=== PATIENT | male | born 1955 | race Hispanic/Latino ===

== ENCOUNTER 2017-05-11 12:56 | Inpatient (IN) | payer MEDICARE ==
[~2017-05-11] VITALS: Ht 180.3 cm; Wt 113.4 kg
[~2017-05-11 12:56] MED LIST: ASPI-1197 PO; CINA30 PO; CLOP75TA14 PO; MIDO10TA PO; PRAV40TA3 PO; SEVE800T7 PO
[2017-05-11] MEDS ORDERED: SODIUM BICARB 50MEQ 50ML VIAL ONE (13:10)
[2017-05-11] MEDS ORDERED: DEXTROSE 50%-WATER 50 ML DISP.SYRIN IV ONE (13:10)
[2017-05-11] MEDS ORDERED: CALCIUM GLUCONATE 1 GM/10 ML VIAL IV ONE (13:10)
[2017-05-11] MEDS ORDERED: INSULIN HUMULIN R 100 UNIT/ML 3ML ONE (13:13)
[2017-05-11] MEDS ORDERED: FUROSEMIDE 10 MG/ML 4ML VIAL ONE ×2 (13:13→13:31)
[2017-05-11] MEDS ORDERED: SODIUM POLYSTYRENE SULFONATE 15 GM/60 ML ML ONE ×2 (13:18→16:29)
[2017-05-11] MEDS ORDERED: ONDANSETRON ODT 4 MG TAB ONE (13:19)
[2017-05-11 13:31] LABS: ABG HCO3 20.1 mmol/L (21.0-28.0); ABG OXYGEN SATURATION 95.7 % (95.0-99.0); ABG PCO2 33 mmHg (35-48)
[2017-05-11 13:37] LABS: BASOPHILS % (AUTO) 0.9 % (0.0-5.0); EOSINOPHILS % (AUTO) 1.7 % (0.0-8.0); HEMATOCRIT 39.1 % (42-54); LYMPHOCYTES % (AUTO) 19.9 % (21.0-51.0); MEAN CORPUSCULAR HEMOGLOBIN 33.3 pg (27.0-33.0); MEAN CORPUSCULAR HGB CONC 34.1 g/dL (32.0-36.0); MEAN CORPUSCULAR VOLUME 97.6 fL (79-99); MONOCYTES % (AUTO) 8.1 % (3.0-13.0); NEUTROPHILS % (AUTO) 69.4 % (40.0-77.0); PLATELET COUNT (AUTO) 195 K/uL (130-400); RED CELL DISTRIBUTION WIDTH 14.4 % (11.0-15.5); WHITE BLOOD COUNT (AUTO) 9.3 K/uL (4.8-10.8)
[2017-05-11 13:54] LABS: INR 1.03 (0.85-1.15); PARTIAL THROMBOPLASTIN TIME 26.8 SEC (26.3-35.5); PROTHROMBIN TIME 10.8 SEC (9.6-11.6)
[2017-05-11 14:02] LABS: BILIRUBIN,TOTAL 0.5 mg/dL (0.2-1.0); TOTAL PROTEIN, SERUM 8.4 g/dL (6.0-8.3)
[2017-05-11 14:06] LABS: CREATININE 10.8 mg/dL (0.5-1.5)
[2017-05-11 17:49] VITALS: BP 140/66
[2017-05-11 19:00] VITALS: BP 130/60
[2017-05-11] MEDS: INSULIN R PO SS1 SQ SCH (21:00)
[2017-05-11 21:37] LABS: CREATINE KINASE MB 0.8 ng/mL (0.5-3.6); CREATINE KINASE, TOTAL 54 U/L (21-232); MYOGLOBIN 356 ng/mL (10-92); TROPONIN I < 0.04 ng/mL (0.00-0.06)
[2017-05-12] VITALS (7 sets, daily range): BP systolic 109–147; BP diastolic 60–70
[2017-05-12 05:37] LABS: HEMATOCRIT 30.8 % (42-54); MEAN CORPUSCULAR HEMOGLOBIN 34.1 pg (27.0-33.0); MEAN CORPUSCULAR HGB CONC 35.2 g/dL (32.0-36.0); MEAN CORPUSCULAR VOLUME 97.1 fL (79-99); NUCLEATED RED BLOOD CELLS 0.1 % (0.0-0.19); PLATELET COUNT (AUTO) 164 K/uL (130-400); RED BLOOD CELL COUNT(AUTO) 3.18 MIL/uL (4.50-6.20); RED CELL DISTRIBUTION WIDTH 13.9 % (11.0-15.5); WHITE BLOOD COUNT (AUTO) 6.6 K/uL (4.8-10.8)
[2017-05-12 06:01] LABS: CARBON DIOXIDE 27 mmol/L (21-32); CHLORIDE 103 mmol/L (101-111); CREATINE KINASE MB 0.6 ng/mL (0.5-3.6); CREATINE KINASE, TOTAL 44 U/L (21-232); GLOMERULAR FILTR. RATE CALC 4 mL/min (>60); GLUCOSE,RANDOM 73 mg/dL (70-105); MYOGLOBIN 355 ng/mL (10-92); POTASSIUM 4.5 mmol/L (3.5-5.1); SODIUM SERUM 146 mmol/L (136-145); TROPONIN I < 0.04 ng/mL (0.00-0.06); UREA NITROGEN, BLOOD 66 mg/dL (7-18)
[2017-05-12 06:04] LABS: CREATININE 12.9 mg/dL (0.5-1.5)
[2017-05-12] MEDS: INSULIN R PO SS1 SQ SCH ×4 (06:06→20:39)
[2017-05-12] MEDS ORDERED: 0.9% SODIUM CHLORIDE 250 ML IV BAG IV PRN (12:00)
[2017-05-12] MEDS ORDERED: SODIUM CHLORIDE 0.9% 1000ML 1,000 ML IV PRN (12:00)
[2017-05-12] MEDS ORDERED: HEPARIN SODIUM 5000UNIT/ML 1ML VIAL IJ PRN ×2 (12:00)
[2017-05-12] MEDS ORDERED: ALBUMIN (HUMAN) 25% 100 ML IV PRN (12:00)
[2017-05-12] MEDS ORDERED: SEVE800T7 PO (17:56)
[2017-05-12] MEDS ORDERED: SUCR500T PO (17:56)
[2017-05-12] MEDS ORDERED: MIDO10TA PO (17:56)
[2017-05-12] MEDS: MIDODRINE HCL 5 MG TABLET PO SCH (20:39)
[2017-05-13 03:10] VITALS: BP 123/54
[2017-05-13 03:55] LABS: HEMATOCRIT 31.4 % (42-54); MEAN CORPUSCULAR HEMOGLOBIN 33.1 pg (27.0-33.0); MEAN CORPUSCULAR HGB CONC 34.4 g/dL (32.0-36.0); MEAN CORPUSCULAR VOLUME 96.1 fL (79-99); PLATELET COUNT (AUTO) 136 K/uL (130-400); RED BLOOD CELL COUNT(AUTO) 3.27 MIL/uL (4.50-6.20); RED CELL DISTRIBUTION WIDTH 13.8 % (11.0-15.5); WHITE BLOOD COUNT (AUTO) 5.9 K/uL (4.8-10.8)
[2017-05-13 04:03] LABS: PHOSPHORUS 8.9 mg/dL (2.5-4.9); POTASSIUM 4.3 mmol/L (3.5-5.1)
[2017-05-13 04:12] LABS: CREATININE 9.6 mg/dL (0.5-1.5)
[2017-05-13 04:22] LABS: BAND NEUTROPHILS % (MANUAL) 4 % (0-2); BASOPHILS % (MANUAL) 1 % (0-2); EOSINOPHILS % (MANUAL) 4 % (1-6); LYMPHOCYTES % (MANUAL) 34 % (22-44); MAN.DIFF COMMENT-IMPRESSION MANUAL DIFFERENTIAL; MONOCYTES % (MANUAL) 5 % (2-9); REACTIVE LYMPHOCYTES 2 % (0-0); SEGMENTED NEUTROPHILS % 50 % (40-70)
[2017-05-13] MEDS: INSULIN R PO SS1 SQ SCH (06:13)
[2017-05-13] MEDS ORDERED: SEVELAMER HCL 800 MG TABLET PO SCH (07:30)
[2017-05-13 08:00] VITALS: BP 127/63
[2017-05-13] MEDS: MIDODRINE HCL 5 MG TABLET PO SCH (08:21)
== END 2017-05-13 12:18 | disposition home or self-care (01) | DRG 308 ==
LOC: EDH 12:56 → EDHIP 16:25 → 3BH 17:12
PROVIDERS: ADMIT Internal Medicine Nephrology; ATTEND Internal Medicine Nephrology
PROC: 5A1D70Z Performance of Urinary Filtration, Intermittent, Less than 6 Hours Per Day (ICD-10-PCS; principal; 2017-05-12)
DX: I49.8 Other specified cardiac arrhythmias (principal); N18.6 End stage renal disease; E11.22 Type 2 diabetes mellitus with diabetic chronic kidney disease; I12.0 Hypertensive chronic kidney disease with stage 5 chronic kidney disease or end stage renal disease; I44.2 Atrioventricular block, complete; E87.5 Hyperkalemia; I45.2 Bifascicular block; Z99.2 Dependence on renal dialysis; E87.6 Hypokalemia; I25.10 Atherosclerotic heart disease of native coronary artery without angina pectoris; R62.7 Adult failure to thrive; Z95.5 Presence of coronary angioplasty implant and graft; Z91.19 Patient's noncompliance with other medical treatment and regimen; Z91.041 Radiographic dye allergy status; Z88.8 Allergy status to other drugs, medicaments and biological substances; Z83.3 Family history of diabetes mellitus; Z82.49 Family history of ischemic heart disease and other diseases of the circulatory system
CPT/HCPCS: 36415; 36600; 71045; 80048; 80053; 82330; 82435; 82550; 82553; 82803; 82947; 82948; 83605; 83874; 84100; 84132; 84295; 84484; 85018; 85025; 85027; 85610; 85730; 90935; 93005; 93306; 99291; J0610; J1644; J1815; J1940; J3490; J7070

== ENCOUNTER → 2017-06-20 | Outpatient (CLI) | payer MEDICARE ==
[~2017-06-20] MED LIST changes: +AEC81 PO; -ASPI-1197 PO; -CINA30 PO; -CLOP75TA14 PO; +FOLI1TAB85 PO; +INSLAN SQ; +MECL12.585 PO; +SUCR500T PO
== END | disposition home or self-care (01) ==
LOC: SHCH 07:41
PROVIDERS: ATTEND Internal Medicine Cardiovascular Disease
DX: I25.10 Atherosclerotic heart disease of native coronary artery without angina pectoris (principal); R00.1 Bradycardia, unspecified
CPT/HCPCS: 78481; A9512

== ENCOUNTER → 2017-06-29 | Outpatient (CLI) | payer MEDICARE | END | disposition home or self-care (01) | LOC: RAH 13:05 | PROVIDERS: ATTEND Physician Assistant Medical | DX: H34.11 Central retinal artery occlusion, right eye (principal) | CPT/HCPCS: 93880 ==

== ENCOUNTER 2017-07-03 11:17 | Inpatient (IN) | payer MEDICARE ==
[~2017-07-03] VITALS: Ht 180.3 cm; Wt 112.2 kg
[~2017-07-03 11:17] MED LIST changes: -AEC81 PO; -FOLI1TAB85 PO; -INSLAN SQ; -MECL12.585 PO; -PRAV40TA3 PO
[2017-07-03 12:56] LABS: BASOPHILS % (AUTO) 0.3 % (0.0-5.0); HEMATOCRIT 31.7 % (42-54); MEAN CORPUSCULAR HEMOGLOBIN 31.4 pg (27.0-33.0); MEAN CORPUSCULAR HGB CONC 32.8 g/dL (32.0-36.0); MEAN CORPUSCULAR VOLUME 95.8 fL (79-99); MONOCYTES % (AUTO) 7.5 % (3.0-13.0); NEUTROPHILS % (AUTO) 88.2 % (40.0-77.0); PLATELET COUNT (AUTO) 145 K/uL (130-400); RED BLOOD CELL COUNT(AUTO) 3.31 MIL/uL (4.50-6.20); RED CELL DISTRIBUTION WIDTH 13.6 % (11.0-15.5); WHITE BLOOD COUNT (AUTO) 13.3 K/uL (4.8-10.8)
[2017-07-03 13:20] LABS: INR 1.16 (0.85-1.15); PARTIAL THROMBOPLASTIN TIME 34.7 SEC (26.3-35.5); PROTHROMBIN TIME 12.1 SEC (9.6-11.6)
[2017-07-03 13:52] LABS: ALANINE AMINOTRANSFERASE 11 U/L (12-78); ALBUMIN 2.8 g/dL (3.5-5.0); ASPARTATE AMINOTRANSFERASE 11 U/L (10-37); BILIRUBIN,TOTAL 0.4 mg/dL (0.2-1.0); CARBON DIOXIDE 28 mmol/L (21-32); CHLORIDE 100 mmol/L (101-111); CREATINE KINASE MB < 0.5 ng/mL (0.5-3.6); CREATINE KINASE, TOTAL 20 U/L (21-232); GLOMERULAR FILTR. RATE CALC 5 mL/min (>60); GLUCOSE,RANDOM 143 mg/dL (70-105); MYOGLOBIN 251 ng/mL (10-92); POTASSIUM 4.8 mmol/L (3.5-5.1); SODIUM SERUM 140 mmol/L (136-145); TOTAL PROTEIN, SERUM 7.2 g/dL (6.0-8.3); TROPONIN I 0.16 ng/mL (0.00-0.06); UREA NITROGEN, BLOOD 50 mg/dL (7-18)
[2017-07-03 13:56] LABS: CREATININE 10.9 mg/dL (0.5-1.5)
[2017-07-03] MEDS ORDERED: MEROPENEM 1 GM VIAL ONE (14:04)
[2017-07-03] MEDS ORDERED: VANCOMYCIN 1GM+NS 250ML 250 ML IV ONE (14:04)
[2017-07-03] MEDS ORDERED: DEXTROSE 50%-WATER 50 ML DISP.SYRIN IV PRN (15:00)
[2017-07-03] MEDS ORDERED: ONDANSETRON HCL MDV 20ML 2 MG/ML VIAL IVP PRN (15:00)
[2017-07-03] MEDS ORDERED: SODIUM CHLORIDE 0.9% 10 ML VIAL IVP SCH (15:00)
[2017-07-03] MEDS ORDERED: GLUCAGON 1MG KIT 1 MG ML IM PRN (15:00)
[2017-07-03] MEDS ORDERED: VANCOMYCIN PROTOCOL PER PHARMACY IV SCH (15:15)
[2017-07-03] MEDS ORDERED: VANCOMYCIN 1GM+NS 250ML 250 ML IV SCH (15:15)
[2017-07-03] MEDS ORDERED: SODIUM CHLORIDE 0.9% 500ML 500 ML IV ONE (15:22)
[2017-07-03] MEDS ORDERED: PANTOPRAZOLE 40 MG/VIAL IVP SCH (15:30)
[2017-07-03 15:45] VITALS: BP 106/47
[2017-07-03] MEDS ORDERED: MECL12.585 PO (16:23)
[2017-07-03] MEDS ORDERED: INSLAN SQ (16:23)
[2017-07-03] MEDS: INSULIN R PO SS1/2 SQ SCH ×2 (16:30→21:08)
[2017-07-03] MEDS ORDERED: INSULIN R PO SSI SQ SCH (16:30)
[2017-07-03] MEDS ORDERED: FOLI1TAB85 PO (18:28)
[2017-07-03] MEDS ORDERED: PRAV40TA3 PO (18:28)
[2017-07-03] MEDS ORDERED: AEC81 PO (18:28)
[2017-07-03 20:03] VITALS: BP 92/47
[2017-07-03] MEDS: ZOSYN 3.375GM+NS 50ML 50 ML IV SCH (20:10)
[2017-07-03] MEDS: ATORVASTATIN CALCIUM 20 MG TABLET PO SCH (20:10)
[2017-07-03] MEDS: MIDODRINE HCL 5 MG TABLET PO SCH (20:10)
[2017-07-03] MEDS: ACETAMINOPHEN 325 MG TAB PO PRN (20:11)
[2017-07-04] VITALS (7 sets, daily range): BP systolic 86–125; BP diastolic 39–56
[2017-07-04 04:43] LABS: HEMATOCRIT 29.1 % (42-54); MEAN CORPUSCULAR HEMOGLOBIN 32.9 pg (27.0-33.0); MEAN CORPUSCULAR HGB CONC 34.7 g/dL (32.0-36.0); MEAN CORPUSCULAR VOLUME 94.8 fL (79-99); PLATELET COUNT (AUTO) 112 K/uL (130-400); RED BLOOD CELL COUNT(AUTO) 3.07 MIL/uL (4.50-6.20); RED CELL DISTRIBUTION WIDTH 13.5 % (11.0-15.5); WHITE BLOOD COUNT (AUTO) 11.9 K/uL (4.8-10.8)
[2017-07-04 05:10] LABS: ALBUMIN 2.4 g/dL (3.5-5.0); BILIRUBIN,TOTAL 0.4 mg/dL (0.2-1.0); POTASSIUM 4.8 mmol/L (3.5-5.1); TOTAL PROTEIN, SERUM 6.5 g/dL (6.0-8.3)
[2017-07-04 05:16] LABS: CREATININE 12.2 mg/dL (0.5-1.5)
[2017-07-04 05:20] LABS: BAND NEUTROPHILS % (MANUAL) 5 % (0-2); EOSINOPHILS % (MANUAL) 2 % (1-6); LYMPHOCYTES % (MANUAL) 7 % (22-44); MAN.DIFF COMMENT-IMPRESSION MANUAL DIFFERENTIAL; MONOCYTES % (MANUAL) 1 % (2-9); PLATELET MORPHOLOGY COMMENT SLIGHTLY DECREASED; SEGMENTED NEUTROPHILS % 85 % (40-70)
[2017-07-04] MEDS: INSULIN R PO SS1/2 SQ SCH ×4 (06:16→21:01)
[2017-07-04] MEDS: PANTOPRAZOLE SODIUM 40 MG TABLET.DR PO SCH (06:55)
[2017-07-04] MEDS: SEVELAMER HCL 800 MG TABLET PO SCH ×3 (08:00→17:37)
[2017-07-04] MEDS: ZOSYN 3.375GM+NS 50ML 50 ML IV SCH ×2 (08:00→19:49)
[2017-07-04] MEDS: ASPIRIN 81 MG EC TAB PO SCH (09:00)
[2017-07-04] MEDS: MIDODRINE HCL 5 MG TABLET PO SCH ×3 (09:00→19:50)
[2017-07-04] MEDS ORDERED: PANTOPRAZOLE 40 MG/VIAL IVP SCH (09:00)
[2017-07-04] MEDS ORDERED: GENTAMICIN 80 MG/NS 100 ML PB 100 ML IV ONE (15:00)
[2017-07-04] MEDS ORDERED: LIDOCAINE HCL 1% MDV 50ML VIAL ONE (15:36)
[2017-07-04] MEDS: FOLIC ACID/VITAMIN B COMP W-C 1 MG CAPSULE PO SCH (17:38)
[2017-07-04] MEDS: ATORVASTATIN CALCIUM 20 MG TABLET PO SCH (19:49)
[2017-07-04] MEDS: ACETAMINOPHEN 325 MG TAB PO PRN (19:50)
[2017-07-05 04:34] VITALS: BP 101/42
[2017-07-05 05:15] LABS: HEMATOCRIT 27.1 % (42-54); MEAN CORPUSCULAR HEMOGLOBIN 33.2 pg (27.0-33.0); MEAN CORPUSCULAR HGB CONC 35.3 g/dL (32.0-36.0); MEAN CORPUSCULAR VOLUME 93.9 fL (79-99); PLATELET COUNT (AUTO) 134 K/uL (130-400); RED BLOOD CELL COUNT(AUTO) 2.88 MIL/uL (4.50-6.20); RED CELL DISTRIBUTION WIDTH 13.5 % (11.0-15.5); WHITE BLOOD COUNT (AUTO) 10.7 K/uL (4.8-10.8)
[2017-07-05 05:35] LABS: PHOSPHORUS 4.3 mg/dL (2.5-4.9); POTASSIUM 4.3 mmol/L (3.5-5.1)
[2017-07-05 05:38] LABS: CREATININE 9.5 mg/dL (0.5-1.5)
[2017-07-05] MEDS: INSULIN R PO SS1/2 SQ SCH ×4 (06:30→21:00)
[2017-07-05] MEDS: PANTOPRAZOLE SODIUM 40 MG TABLET.DR PO SCH (06:32)
[2017-07-05 08:00] VITALS: BP 101/49
[2017-07-05] MEDS: SEVELAMER HCL 800 MG TABLET PO SCH ×3 (08:59→16:57)
[2017-07-05] MEDS: ASPIRIN 81 MG EC TAB PO SCH (08:59)
[2017-07-05] MEDS: MIDODRINE HCL 5 MG TABLET PO SCH ×3 (08:59→20:29)
[2017-07-05] MEDS: FOLIC ACID/VITAMIN B COMP W-C 1 MG CAPSULE PO SCH (08:59)
[2017-07-05] MEDS: ZOSYN 3.375GM+NS 50ML 50 ML IV SCH ×2 (09:00→20:28)
[2017-07-05 11:00] VITALS: BP 115/50
[2017-07-05 16:00] VITALS: BP 115/46
[2017-07-05 20:16] VITALS: BP 122/55
[2017-07-05] MEDS: ATORVASTATIN CALCIUM 20 MG TABLET PO SCH (20:29)
[2017-07-05] MEDS: ACETAMINOPHEN 325 MG TAB PO PRN (20:31)
[2017-07-05 23:43] VITALS: BP 141/46
[2017-07-06 03:57] VITALS: BP 111/42
[2017-07-06 04:45] LABS: HEMATOCRIT 27.3 % (42-54); MEAN CORPUSCULAR HEMOGLOBIN 31.6 pg (27.0-33.0); MEAN CORPUSCULAR HGB CONC 33.5 g/dL (32.0-36.0); MEAN CORPUSCULAR VOLUME 94.4 fL (79-99); PLATELET COUNT (AUTO) 135 K/uL (130-400); RED BLOOD CELL COUNT(AUTO) 2.89 MIL/uL (4.50-6.20); RED CELL DISTRIBUTION WIDTH 13.3 % (11.0-15.5); WHITE BLOOD COUNT (AUTO) 9.4 K/uL (4.8-10.8)
[2017-07-06 04:52] LABS: INR 1.16 (0.85-1.15); PARTIAL THROMBOPLASTIN TIME 34.4 SEC (26.3-35.5); PROTHROMBIN TIME 12.1 SEC (9.6-11.6)
[2017-07-06 04:58] LABS: POTASSIUM 4.3 mmol/L (3.5-5.1)
[2017-07-06 05:01] LABS: CREATININE 11.9 mg/dL (0.5-1.5)
[2017-07-06] MEDS: INSULIN R PO SS1/2 SQ SCH ×4 (07:19→21:07)
[2017-07-06] MEDS: ZOSYN 3.375GM+NS 50ML 50 ML IV SCH (07:43)
[2017-07-06] MEDS: FOLIC ACID/VITAMIN B COMP W-C 1 MG CAPSULE PO SCH (07:43)
[2017-07-06] MEDS: PANTOPRAZOLE SODIUM 40 MG TABLET.DR PO SCH (07:43)
[2017-07-06] MEDS: MIDODRINE HCL 5 MG TABLET PO SCH ×3 (07:43→21:05)
[2017-07-06] MEDS: ASPIRIN 81 MG EC TAB PO SCH (07:43)
[2017-07-06] MEDS: SEVELAMER HCL 800 MG TABLET PO SCH ×3 (07:43→16:28)
[2017-07-06 08:01] VITALS: BP 117/49
[2017-07-06 11:00] VITALS: BP 122/43
[2017-07-06] MEDS ORDERED: GENTAMICIN 80 MG/NS 100 ML PB 100 ML IV SCH (11:15)
[2017-07-06 16:12] VITALS: BP 113/52
[2017-07-06 19:46] VITALS: BP 117/49
[2017-07-06] MEDS ORDERED: VANCOMYCIN 1GM+NS 250ML 250 ML IV SCH (21:00)
[2017-07-06] MEDS: ATORVASTATIN CALCIUM 20 MG TABLET PO SCH (21:04)
[2017-07-06 23:58] VITALS: BP 124/74
[2017-07-07] VITALS (12 sets, daily range): BP systolic 99–137; BP diastolic 42–63
[2017-07-07] MEDS: ACETAMINOPHEN 325 MG TAB PO PRN ×2 (00:18→10:19)
[2017-07-07 05:22] LABS: HEMATOCRIT 27.2 % (42-54); MEAN CORPUSCULAR HEMOGLOBIN 32.3 pg (27.0-33.0); MEAN CORPUSCULAR HGB CONC 34.3 g/dL (32.0-36.0); MEAN CORPUSCULAR VOLUME 94.2 fL (79-99); PLATELET COUNT (AUTO) 149 K/uL (130-400); RED BLOOD CELL COUNT(AUTO) 2.89 MIL/uL (4.50-6.20); RED CELL DISTRIBUTION WIDTH 13.4 % (11.0-15.5); WHITE BLOOD COUNT (AUTO) 8.8 K/uL (4.8-10.8)
[2017-07-07 05:36] LABS: INR 1.17 (0.85-1.15); PARTIAL THROMBOPLASTIN TIME 32.3 SEC (26.3-35.5); POTASSIUM 4.9 mmol/L (3.5-5.1); PROTHROMBIN TIME 12.2 SEC (9.6-11.6)
[2017-07-07 05:42] LABS: CREATININE 13.5 mg/dL (0.5-1.5)
[2017-07-07] MEDS: INSULIN R PO SS1/2 SQ SCH ×4 (07:10→21:00)
[2017-07-07] MEDS: PANTOPRAZOLE SODIUM 40 MG TABLET.DR PO SCH (07:12)
[2017-07-07] MEDS: SEVELAMER HCL 800 MG TABLET PO SCH ×3 (07:48→16:44)
[2017-07-07] MEDS: MIDODRINE HCL 5 MG TABLET PO SCH ×3 (07:58→22:29)
[2017-07-07] MEDS: FOLIC ACID/VITAMIN B COMP W-C 1 MG CAPSULE PO SCH (07:58)
[2017-07-07] MEDS: ASPIRIN 81 MG EC TAB PO SCH (07:59)
[2017-07-07] MEDS ORDERED: GENTAMICIN 80 MG/NS 100 ML PB 100 ML IV SCH (08:00)
[2017-07-07] MEDS ORDERED: VANCOMYCIN 1GM+NS 250ML 250 ML IV SCH (09:00)
[2017-07-07] MEDS ORDERED: GENTAMICIN 80 MG/NS 100 ML PB 100 ML IV ONE (09:00)
[2017-07-07] MEDS ORDERED: LIDOCAINE HCL 1% MDV 50ML VIAL ONE (13:50)
[2017-07-07] MEDS ORDERED: HEPARIN SODIUM 1000UNIT/ML 10ML VIAL ONE (14:32)
[2017-07-07] MEDS ORDERED: 0.9% SODIUM CHLORIDE 250 ML IV BAG IV PRN (19:45)
[2017-07-07] MEDS ORDERED: HEPARIN SODIUM 5000UNIT/ML 1ML VIAL IJ PRN (19:45)
[2017-07-07] MEDS ORDERED: SODIUM CHLORIDE 0.9% 1000ML 1,000 ML IV PRN (19:45)
[2017-07-07] MEDS ORDERED: ALBUMIN (HUMAN) 25% 100 ML IV PRN (19:45)
[2017-07-07] MEDS: ATORVASTATIN CALCIUM 20 MG TABLET PO SCH (22:29)
[2017-07-08 00:01] VITALS: BP 90/41
[2017-07-08 04:24] LABS: HEMATOCRIT 27.3 % (42-54); MEAN CORPUSCULAR HEMOGLOBIN 31.2 pg (27.0-33.0); MEAN CORPUSCULAR HGB CONC 33.5 g/dL (32.0-36.0); PLATELET COUNT (AUTO) 133 K/uL (130-400); RED BLOOD CELL COUNT(AUTO) 2.94 MIL/uL (4.50-6.20); RED CELL DISTRIBUTION WIDTH 13.6 % (11.0-15.5); WHITE BLOOD COUNT (AUTO) 7.2 K/uL (4.8-10.8)
[2017-07-08 04:36] LABS: POTASSIUM 4.2 mmol/L (3.5-5.1)
[2017-07-08 04:45] LABS: CREATININE 8.9 mg/dL (0.5-1.5)
[2017-07-08 04:50] VITALS: BP 126/53
[2017-07-08] MEDS: PANTOPRAZOLE SODIUM 40 MG TABLET.DR PO SCH (06:28)
[2017-07-08] MEDS: INSULIN R PO SS1/2 SQ SCH (06:28)
[2017-07-08] MEDS: ACETAMINOPHEN 325 MG TAB PO PRN (06:29)
[2017-07-08 07:00] VITALS: BP 99/30
[2017-07-08] MEDS: FOLIC ACID/VITAMIN B COMP W-C 1 MG CAPSULE PO SCH (08:11)
[2017-07-08] MEDS: SEVELAMER HCL 800 MG TABLET PO SCH (08:11)
[2017-07-08] MEDS: ASPIRIN 81 MG EC TAB PO SCH (08:12)
[2017-07-08] MEDS: MIDODRINE HCL 5 MG TABLET PO SCH (08:12)
== END 2017-07-08 11:00 | disposition home or self-care (01) | DRG 314 ==
LOC: EDH 11:17 → EDHIP 14:20 → 2AH 15:42
PROVIDERS: ADMIT Internal Medicine Nephrology; ATTEND Internal Medicine Nephrology
PROC: 5A1D70Z Performance of Urinary Filtration, Intermittent, Less than 6 Hours Per Day (ICD-10-PCS; 2017-07-04)
PROC: 0JH63XZ Insertion of Tunneled Vascular Access Device into Chest Subcutaneous Tissue and Fascia, Percutaneous Approach (ICD-10-PCS; principal; 2017-07-07)
PROC: 02H633Z Insertion of Infusion Device into Right Atrium, Percutaneous Approach (ICD-10-PCS; 2017-07-07)
PROC: B244ZZZ Ultrasonography of Right Heart (ICD-10-PCS; 2017-07-07)
PROC: 0JPT3XZ Removal of Tunneled Vascular Access Device from Trunk Subcutaneous Tissue and Fascia, Percutaneous Approach (ICD-10-PCS; 2017-07-07)
PROC: 05PY33Z Removal of Infusion Device from Upper Vein, Percutaneous Approach (ICD-10-PCS; 2017-07-07)
PROC: 5A1D70Z Performance of Urinary Filtration, Intermittent, Less than 6 Hours Per Day (ICD-10-PCS; 2017-07-07)
DX: T82.7XXA Infection and inflammatory reaction due to other cardiac and vascular devices, implants and grafts, initial encounter (principal); A41.9 Sepsis, unspecified organism; I12.0 Hypertensive chronic kidney disease with stage 5 chronic kidney disease or end stage renal disease; I95.89 Other hypotension; E11.21 Type 2 diabetes mellitus with diabetic nephropathy; E11.51 Type 2 diabetes mellitus with diabetic peripheral angiopathy without gangrene; I42.9 Cardiomyopathy, unspecified; N18.6 End stage renal disease; B95.2 Enterococcus as the cause of diseases classified elsewhere; D64.9 Anemia, unspecified; E11.22 Type 2 diabetes mellitus with diabetic chronic kidney disease; E78.00 Pure hypercholesterolemia, unspecified; E78.5 Hyperlipidemia, unspecified; I25.10 Atherosclerotic heart disease of native coronary artery without angina pectoris; Z99.2 Dependence on renal dialysis; Z95.5 Presence of coronary angioplasty implant and graft; Z91.19 Patient's noncompliance with other medical treatment and regimen; Z83.3 Family history of diabetes mellitus; Y84.1 Kidney dialysis as the cause of abnormal reaction of the patient, or of later complication, without mention of misadventure at the time of the procedure; Y92.89 Other specified places as the place of occurrence of the external cause; Y82.8 Other medical devices associated with adverse incidents
CPT/HCPCS: 36415; 36558; 36589; 71045; 77001; 80048; 80053; 80202; 82550; 82553; 82948; 83605; 83874; 84100; 84484; 85025; 85027; 85610; 85730; 87040; 87070; 87076; 87077; 87186; 90935; 93005; C1750; C9113; J1580; J1644; J1815; J2185; J2543; J3370; J3490; J7030; J7040

== ENCOUNTER 2017-07-12 01:32 | Inpatient (IN) | payer MEDICARE ==
[~2017-07-12] VITALS: Ht 177.8 cm; Wt 113.0 kg
[~2017-07-12 01:32] MED LIST changes: +AEC81 PO; +FOLI1TAB85 PO; +INSLAN SQ; +MECL12.585 PO; +PRAV40TA3 PO; -SUCR500T PO
[2017-07-12] MEDS ORDERED: OCTREOTIDE ACETATE 200 MCG/ML 5 ML VIAL ONE (02:17)
[2017-07-12] MEDS ORDERED: SODIUM CHLORIDE 0.9% 200 ML IV ONE (02:17)
[2017-07-12 02:20] LABS: EOSINOPHILS % (AUTO) 2.1 % (0.0-8.0); HEMATOCRIT 29.5 % (42-54); LYMPHOCYTES % (AUTO) 11.6 % (21.0-51.0); MEAN CORPUSCULAR HEMOGLOBIN 31.2 pg (27.0-33.0); MEAN CORPUSCULAR VOLUME 94.4 fL (79-99); MONOCYTES % (AUTO) 5.4 % (3.0-13.0); NEUTROPHILS % (AUTO) 79.9 % (40.0-77.0); PLATELET COUNT (AUTO) 213 K/uL (130-400); RED BLOOD CELL COUNT(AUTO) 3.13 MIL/uL (4.50-6.20); RED CELL DISTRIBUTION WIDTH 13.5 % (11.0-15.5); WHITE BLOOD COUNT (AUTO) 7.9 K/uL (4.8-10.8)
[2017-07-12] MEDS ORDERED: ONDANSETRON HCL MDV 20ML 2 MG/ML VIAL ONE (02:33)
[2017-07-12 02:35] LABS: INR 1.17 (0.85-1.15); PARTIAL THROMBOPLASTIN TIME 27.5 SEC (26.3-35.5); PROTHROMBIN TIME 12.2 SEC (9.6-11.6)
[2017-07-12 02:40] LABS: ALBUMIN 2.8 g/dL (3.5-5.0); BILIRUBIN,TOTAL 0.3 mg/dL (0.2-1.0); POTASSIUM 4.6 mmol/L (3.5-5.1); TOTAL PROTEIN, SERUM 7.5 g/dL (6.0-8.3)
[2017-07-12 02:41] LABS: CREATININE 12.2 mg/dL (0.5-1.5)
[2017-07-12] MEDS ORDERED: MORPHINE SULFATE 4 MG/1ML SYG ONE (03:19)
[2017-07-12] MEDS ORDERED: VANCOMYCIN 1GM+NS 250ML 250 ML IV ONE (03:44)
[2017-07-12 05:24] VITALS: BP 102/53
[2017-07-12] MEDS ORDERED: MORPHINE SULFATE 4 MG/1ML SYG IVP PRN (07:15)
[2017-07-12] MEDS ORDERED: PANTOPRAZOLE SODIUM 80 MG in SODIUM CHLORIDE 0.9% 100 ML IV SCH (07:15)
[2017-07-12] MEDS ORDERED: HYDROMORPHONE HCL 2 MG/ML VIAL IVP PRN (07:15)
[2017-07-12] MEDS ORDERED: VANCOMYCIN PROTOCOL PER PHARMACY IV SCH (07:15)
[2017-07-12 07:58] VITALS: BP 96/47
[2017-07-12] MEDS ORDERED: MECL12.585 PO (08:06)
[2017-07-12] MEDS ORDERED: INSLAN SQ (08:06)
[2017-07-12] MEDS ORDERED: MIDO10TA PO (08:06)
[2017-07-12] MEDS ORDERED: SEVE800T7 PO (08:06)
[2017-07-12] MEDS ORDERED: PRAV40TA3 PO (08:06)
[2017-07-12] MEDS ORDERED: FOLI1TAB85 PO (08:06)
[2017-07-12] MEDS ORDERED: AEC81 PO (08:06)
[2017-07-12] MEDS ORDERED: 0.9% SODIUM CHLORIDE 250 ML IV BAG IV PRN (09:00)
[2017-07-12] MEDS ORDERED: ALBUMIN (HUMAN) 25% 100 ML IV PRN (09:00)
[2017-07-12] MEDS ORDERED: HEPARIN SODIUM 5000UNIT/ML 1ML VIAL IJ PRN (09:00)
[2017-07-12] MEDS ORDERED: SODIUM CHLORIDE 0.9% 1000ML 1,000 ML IV PRN (09:00)
[2017-07-12 09:44] LABS: CREATINE KINASE MB 5.8 ng/mL (0.5-3.6)
[2017-07-12 09:51] LABS: TROPONIN I 1.82 ng/mL (0.00-0.06)
[2017-07-12] MEDS: VANCOMYCIN 500MG+NS 100ML 100 ML IV SCH (11:09)
[2017-07-12 11:23] VITALS: BP 101/43
[2017-07-12] MEDS ORDERED: CALCIUM CHLORIDE 100 MG/ML 10 ML SYG IVP ONE (12:00)
[2017-07-12] MEDS ORDERED: SODIUM BICARB 8.4% 50ML SYRINGE IVP ONE (12:00)
[2017-07-12] MEDS ORDERED: ETOMIDATE 2 MG/ML 10 ML VIAL IVP ONE (12:00)
[2017-07-12] MEDS ORDERED: ROCURONIUM BROMIDE 10MG/1ML 5ML VL IV ONE (12:00)
[2017-07-12] MEDS ORDERED: EPINEPHRINE 0.1 MG/ML 10 ML SYG IVP ONE (12:00)
[2017-07-12] MEDS ORDERED: MIDODRINE HCL 5 MG TABLET ONE (12:42)
[2017-07-12] MEDS ORDERED: MECLIZINE HCL 12.5 MG TABLET PO PRN (13:15)
[2017-07-12] MEDS: SEVELAMER HCL 800 MG TABLET PO SCH ×2 (13:38→16:46)
[2017-07-12] MEDS: MIDODRINE HCL 5 MG TABLET PO SCH ×2 (13:38→21:06)
[2017-07-12] MEDS: ACETAMINOPHEN 325 MG TAB PO PRN (15:27)
[2017-07-12 15:45] LABS: CREATINE KINASE MB 8.7 ng/mL (0.5-3.6)
[2017-07-12 15:46] LABS: TROPONIN I 2.68 ng/mL (0.00-0.06)
[2017-07-12 16:00] VITALS: BP 96/73
[2017-07-12] MEDS ORDERED: PEG 3350/NA SULF,BICARB,CL/KCL 4000 ML SOLN PO SCH (17:00)
[2017-07-12 19:07] VITALS: BP 89/61
[2017-07-12] MEDS: ATORVASTATIN CALCIUM 10 MG TABLET PO SCH (21:06)
[2017-07-12 23:25] VITALS: BP 106/46
[2017-07-13 03:34] VITALS: BP 73/45
[2017-07-13] MEDS: ACETAMINOPHEN 325 MG TAB PO PRN ×2 (06:03→21:41)
[2017-07-13 06:13] LABS: HEMATOCRIT 30.8 % (42-54); MEAN CORPUSCULAR HEMOGLOBIN 31.7 pg (27.0-33.0); MEAN CORPUSCULAR HGB CONC 33.3 g/dL (32.0-36.0); MEAN CORPUSCULAR VOLUME 95.2 fL (79-99); PLATELET COUNT (AUTO) 230 K/uL (130-400); RED BLOOD CELL COUNT(AUTO) 3.24 MIL/uL (4.50-6.20); RED CELL DISTRIBUTION WIDTH 13.9 % (11.0-15.5); WHITE BLOOD COUNT (AUTO) 8.7 K/uL (4.8-10.8)
[2017-07-13 06:43] LABS: CREATINE KINASE MB 5.7 ng/mL (0.5-3.6); POTASSIUM 4.7 mmol/L (3.5-5.1)
[2017-07-13 07:16] LABS: CREATININE 8.5 mg/dL (0.5-1.5); TROPONIN I 4.83 ng/mL (0.00-0.06)
[2017-07-13] MEDS: INSULIN GLARGINE 100 UNITS/ML 10 ML VIAL SQ SCH (07:30)
[2017-07-13] MEDS: PANTOPRAZOLE SODIUM 40 MG TABLET.DR PO SCH ×2 (07:30→12:31)
[2017-07-13 07:59] VITALS: BP 93/45
[2017-07-13] MEDS ORDERED: PANTOPRAZOLE 40 MG/VIAL IVP SCH (09:00)
[2017-07-13] MEDS: MIDODRINE HCL 5 MG TABLET PO SCH ×3 (10:27→20:33)
[2017-07-13 11:35] VITALS: BP 99/44
[2017-07-13] MEDS: FOLIC ACID/VITAMIN B COMP W-C 1 MG CAPSULE PO SCH (12:30)
[2017-07-13] MEDS: SEVELAMER HCL 800 MG TABLET PO SCH ×3 (12:30→20:33)
[2017-07-13 16:00] VITALS: BP 112/55
[2017-07-13] MEDS: BENZONATATE 100 MG CAPSULE PO PRN (17:01)
[2017-07-13 19:25] VITALS: BP 117/74
[2017-07-13] MEDS: ATORVASTATIN CALCIUM 10 MG TABLET PO SCH (20:33)
[2017-07-13] MEDS ORDERED: DEXTROSE 50%-WATER 50 ML DISP.SYRIN IV PRN (20:45)
[2017-07-13] MEDS ORDERED: GLUCAGON 1MG KIT 1 MG ML IM PRN (20:45)
[2017-07-13] MEDS: INSULIN HUMULIN R 100 UNIT/ML 3ML SQ SCH (21:39)
[2017-07-13 23:47] VITALS: BP 104/50
[2017-07-14 03:36] VITALS: BP 102/45
[2017-07-14] MEDS: BENZONATATE 100 MG CAPSULE PO PRN ×2 (03:37→21:19)
[2017-07-14 04:18] LABS: HEMATOCRIT 30.2 % (42-54); MEAN CORPUSCULAR HEMOGLOBIN 31.2 pg (27.0-33.0); MEAN CORPUSCULAR HGB CONC 33.1 g/dL (32.0-36.0); MEAN CORPUSCULAR VOLUME 94.2 fL (79-99); NUCLEATED RED BLOOD CELLS 0.1 % (0.0-0.19); PLATELET COUNT (AUTO) 252 K/uL (130-400); RED CELL DISTRIBUTION WIDTH 13.7 % (11.0-15.5); WHITE BLOOD COUNT (AUTO) 8.9 K/uL (4.8-10.8)
[2017-07-14 04:36] LABS: ALBUMIN 2.9 g/dL (3.5-5.0); ASPARTATE AMINOTRANSFERASE 23 U/L (10-37); BILIRUBIN,DIRECT 0.2 mg/dL (0.0-0.3); BILIRUBIN,TOTAL 0.4 mg/dL (0.2-1.0); CARBON DIOXIDE 30 mmol/L (21-32); CHLORIDE 100 mmol/L (101-111); GLOMERULAR FILTR. RATE CALC 5 mL/min (>60); GLUCOSE,RANDOM 120 mg/dL (70-105); PHOSPHORUS 4.5 mg/dL (2.5-4.9); POTASSIUM 4.6 mmol/L (3.5-5.1); SODIUM SERUM 142 mmol/L (136-145); TOTAL PROTEIN, SERUM 7.6 g/dL (6.0-8.3); UREA NITROGEN, BLOOD 45 mg/dL (7-18)
[2017-07-14 04:50] LABS: ALANINE AMINOTRANSFERASE < 6 U/L (12-78)
[2017-07-14 04:56] LABS: CREATININE 10.3 mg/dL (0.5-1.5)
[2017-07-14] MEDS: INSULIN HUMULIN R 100 UNIT/ML 3ML SQ SCH ×4 (06:01→21:18)
[2017-07-14] MEDS: INSULIN GLARGINE 100 UNITS/ML 10 ML VIAL SQ SCH (06:42)
[2017-07-14] MEDS: PANTOPRAZOLE SODIUM 40 MG TABLET.DR PO SCH (06:43)
[2017-07-14 08:07] VITALS: BP 132/44
[2017-07-14] MEDS: MIDODRINE HCL 5 MG TABLET PO SCH ×3 (08:10→20:51)
[2017-07-14] MEDS: SEVELAMER HCL 800 MG TABLET PO SCH ×3 (08:10→20:51)
[2017-07-14] MEDS: ACETAMINOPHEN 325 MG TAB PO PRN ×3 (08:19→20:53)
[2017-07-14] MEDS: FOLIC ACID/VITAMIN B COMP W-C 1 MG CAPSULE PO SCH (09:00)
[2017-07-14 10:19] LABS: CREATINE KINASE MB 2.6 ng/mL (0.5-3.6)
[2017-07-14 10:20] LABS: TROPONIN I 5.61 ng/mL (0.00-0.06)
[2017-07-14 12:08] VITALS: BP 127/96
[2017-07-14] MEDS: VANCOMYCIN 500MG+NS 100ML 100 ML IV SCH (14:47)
[2017-07-14 16:00] VITALS: BP 96/41
[2017-07-14 16:09] LABS: CREATINE KINASE MB 3.2 ng/mL (0.5-3.6)
[2017-07-14 16:20] LABS: TROPONIN I 6.21 ng/mL (0.00-0.06)
[2017-07-14 19:39] VITALS: BP 101/46
[2017-07-14] MEDS: ATORVASTATIN CALCIUM 10 MG TABLET PO SCH (20:50)
[2017-07-14 23:49] VITALS: BP 94/45
[2017-07-15] VITALS (7 sets, daily range): BP systolic 94–141; BP diastolic 36–61
[2017-07-15] MEDS: INSULIN HUMULIN R 100 UNIT/ML 3ML SQ SCH ×4 (06:12→20:54)
[2017-07-15] MEDS: PANTOPRAZOLE SODIUM 40 MG TABLET.DR PO SCH (06:20)
[2017-07-15] MEDS: INSULIN GLARGINE 100 UNITS/ML 10 ML VIAL SQ SCH (06:20)
[2017-07-15] MEDS: FOLIC ACID/VITAMIN B COMP W-C 1 MG CAPSULE PO SCH (08:40)
[2017-07-15] MEDS: SEVELAMER HCL 800 MG TABLET PO SCH ×3 (08:40→16:40)
[2017-07-15] MEDS: MIDODRINE HCL 5 MG TABLET PO SCH ×3 (08:40→20:16)
[2017-07-15] MEDS: BENZONATATE 100 MG CAPSULE PO PRN ×2 (08:59→20:20)
[2017-07-15] MEDS ORDERED: ASPIRIN 81 MG EC TAB PO SCH (09:00)
[2017-07-15] MEDS: ACETAMINOPHEN 325 MG TAB PO PRN ×3 (09:00→20:21)
[2017-07-15] MEDS: ONDANSETRON HCL 4 MG/2 ML VIAL IVP PRN (11:54)
[2017-07-15] MEDS: ATORVASTATIN CALCIUM 10 MG TABLET PO SCH (20:15)
[2017-07-16 03:17] VITALS: BP 120/41
[2017-07-16] MEDS: ACETAMINOPHEN 325 MG TAB PO PRN ×4 (03:45→21:32)
[2017-07-16 04:53] LABS: HEMATOCRIT 28.1 % (42-54); MEAN CORPUSCULAR HGB CONC 32.5 g/dL (32.0-36.0); MEAN CORPUSCULAR VOLUME 95.3 fL (79-99); NUCLEATED RED BLOOD CELLS 0.2 % (0.0-0.19); PLATELET COUNT (AUTO) 200 K/uL (130-400); RED BLOOD CELL COUNT(AUTO) 2.95 MIL/uL (4.50-6.20); RED CELL DISTRIBUTION WIDTH 13.7 % (11.0-15.5); WHITE BLOOD COUNT (AUTO) 7.9 K/uL (4.8-10.8)
[2017-07-16 05:12] LABS: POTASSIUM 3.5 mmol/L (3.5-5.1)
[2017-07-16 05:18] LABS: CREATININE 7.9 mg/dL (0.5-1.5)
[2017-07-16] MEDS: INSULIN HUMULIN R 100 UNIT/ML 3ML SQ SCH ×4 (06:04→21:00)
[2017-07-16] MEDS: PANTOPRAZOLE SODIUM 40 MG TABLET.DR PO SCH (06:33)
[2017-07-16] MEDS: INSULIN GLARGINE 100 UNITS/ML 10 ML VIAL SQ SCH (06:51)
[2017-07-16 07:00] VITALS: BP 104/45
[2017-07-16] MEDS: SEVELAMER HCL 800 MG TABLET PO SCH ×3 (07:52→17:16)
[2017-07-16] MEDS: FOLIC ACID/VITAMIN B COMP W-C 1 MG CAPSULE PO SCH (08:44)
[2017-07-16] MEDS: CLOPIDOGREL BISULFATE 75 MG TAB PO SCH (08:44)
[2017-07-16] MEDS: BENZONATATE 100 MG CAPSULE PO PRN ×3 (08:45→23:22)
[2017-07-16] MEDS: MIDODRINE HCL 5 MG TABLET PO SCH ×3 (08:45→20:23)
[2017-07-16 11:28] VITALS: BP 110/46
[2017-07-16] MEDS: VANCOMYCIN 500MG+NS 100ML 100 ML IV SCH (12:27)
[2017-07-16] MEDS: ONDANSETRON HCL 4 MG/2 ML VIAL IVP PRN (13:50)
[2017-07-16 16:27] VITALS: BP 127/64
[2017-07-16 19:04] VITALS: BP 92/54
[2017-07-16] MEDS ORDERED: MAG HYDROX/AL HYDROX/SIMETH ES 30 ML SUSP UDCUP PO PRN (19:30)
[2017-07-16] MEDS: ATORVASTATIN CALCIUM 10 MG TABLET PO SCH (20:23)
[2017-07-16 23:18] VITALS: BP 115/74
[2017-07-17] MEDS: ONDANSETRON HCL 4 MG/2 ML VIAL IVP PRN (00:37)
[2017-07-17] MEDS ORDERED: HYDROMORPHONE HCL 0.5 MG/0.5 ML ML ONE (02:12)
[2017-07-17 04:18] VITALS: BP 123/59
[2017-07-17] MEDS: PANTOPRAZOLE SODIUM 40 MG TABLET.DR PO SCH (05:46)
[2017-07-17] MEDS: INSULIN GLARGINE 100 UNITS/ML 10 ML VIAL SQ SCH (05:48)
[2017-07-17] MEDS: INSULIN HUMULIN R 100 UNIT/ML 3ML SQ SCH ×3 (05:48→21:41)
[2017-07-17 07:53] VITALS: BP 153/88
[2017-07-17] MEDS: CLOPIDOGREL BISULFATE 75 MG TAB PO SCH (07:57)
[2017-07-17] MEDS: FOLIC ACID/VITAMIN B COMP W-C 1 MG CAPSULE PO SCH (07:57)
[2017-07-17] MEDS: SEVELAMER HCL 800 MG TABLET PO SCH ×3 (07:57→17:02)
[2017-07-17] MEDS: ACETAMINOPHEN 325 MG TAB PO PRN ×2 (07:58→23:22)
[2017-07-17] MEDS: MIDODRINE HCL 5 MG TABLET PO SCH ×3 (08:00→21:39)
[2017-07-17 08:15] LABS: HEMATOCRIT 28.5 % (42-54); MEAN CORPUSCULAR HEMOGLOBIN 30.3 pg (27.0-33.0); MEAN CORPUSCULAR HGB CONC 31.8 g/dL (32.0-36.0); MEAN CORPUSCULAR VOLUME 95.6 fL (79-99); NUCLEATED RED BLOOD CELLS 0.2 % (0.0-0.19); PLATELET COUNT (AUTO) 154 K/uL (130-400); RED BLOOD CELL COUNT(AUTO) 2.99 MIL/uL (4.50-6.20); RED CELL DISTRIBUTION WIDTH 14.1 % (11.0-15.5)
[2017-07-17] MEDS: HYDROMORPHONE HCL 0.5 MG/0.5 ML ML IVP PRN ×2 (08:31→14:17)
[2017-07-17 09:02] LABS: BASOPHILS % (MANUAL) 1 % (0-2); LYMPHOCYTES % (MANUAL) 9 % (22-44); MAN.DIFF COMMENT-IMPRESSION MANUAL DIFFERENTIAL; MONOCYTES % (MANUAL) 3 % (2-9); PLATELET MORPHOLOGY COMMENT ADEQUATE; REACTIVE LYMPHOCYTES 1 % (0-0); SEGMENTED NEUTROPHILS % 86 % (40-70)
[2017-07-17 11:40] VITALS: BP 124/30
[2017-07-17 19:03] VITALS: BP 100/62
[2017-07-17] MEDS: ATORVASTATIN CALCIUM 10 MG TABLET PO SCH (21:39)
[2017-07-17 23:11] VITALS: BP 115/67
[2017-07-18 01:08] VITALS: BP 101/38
[2017-07-18 03:00] VITALS: BP 108/42
[2017-07-18] MEDS: ACETAMINOPHEN 325 MG TAB PO PRN (04:56)
[2017-07-18 05:47] LABS: HEMATOCRIT 29.1 % (42-54); MEAN CORPUSCULAR HEMOGLOBIN 31.3 pg (27.0-33.0); MEAN CORPUSCULAR HGB CONC 32.6 g/dL (32.0-36.0); MEAN CORPUSCULAR VOLUME 96.1 fL (79-99); NUCLEATED RED BLOOD CELLS 0.1 % (0.0-0.19); PLATELET COUNT (AUTO) 157 K/uL (130-400); RED BLOOD CELL COUNT(AUTO) 3.03 MIL/uL (4.50-6.20); RED CELL DISTRIBUTION WIDTH 14.7 % (11.0-15.5); WHITE BLOOD COUNT (AUTO) 13.5 K/uL (4.8-10.8)
[2017-07-18 05:58] LABS: PHOSPHORUS 5.5 mg/dL (2.5-4.9); POTASSIUM 5.7 mmol/L (3.5-5.1)
[2017-07-18 05:59] LABS: BAND NEUTROPHILS % (MANUAL) 13 % (0-2); LYMPHOCYTES % (MANUAL) 8 % (22-44); MONOCYTES % (MANUAL) 5 % (2-9); SEGMENTED NEUTROPHILS % 74 % (40-70)
[2017-07-18 06:00] LABS: MAN.DIFF COMMENT-IMPRESSION MANUAL DIFFERENTIAL; PLATELET MORPHOLOGY COMMENT ADEQUATE
[2017-07-18 06:01] LABS: CREATININE 11.7 mg/dL (0.5-1.5)
== END 2017-07-18 09:31 | disposition expired ==
LOC: EDH 01:32 → OBSVTOIN 03:30 → EDHIP 03:30 → 2DH 05:06 → 4AH 07-18 01:14
PROVIDERS: ADMIT Internal Medicine Nephrology; ATTEND Internal Medicine Nephrology
PROC: 5A1D70Z Performance of Urinary Filtration, Intermittent, Less than 6 Hours Per Day (ICD-10-PCS; principal; 2017-07-12)
PROC: 5A1D70Z Performance of Urinary Filtration, Intermittent, Less than 6 Hours Per Day (ICD-10-PCS; 2017-07-14)
PROC: 5A12012 Performance of Cardiac Output, Single, Manual (ICD-10-PCS; 2017-07-16)
PROC: 5A1D70Z Performance of Urinary Filtration, Intermittent, Less than 6 Hours Per Day (ICD-10-PCS; 2017-07-16)
DX: I21.4 Non-ST elevation (NSTEMI) myocardial infarction (principal); N18.6 End stage renal disease; E11.21 Type 2 diabetes mellitus with diabetic nephropathy; E11.51 Type 2 diabetes mellitus with diabetic peripheral angiopathy without gangrene; K92.2 Gastrointestinal hemorrhage, unspecified; E87.5 Hyperkalemia; I12.0 Hypertensive chronic kidney disease with stage 5 chronic kidney disease or end stage renal disease; D64.9 Anemia, unspecified; E11.22 Type 2 diabetes mellitus with diabetic chronic kidney disease; E78.5 Hyperlipidemia, unspecified; I25.10 Atherosclerotic heart disease of native coronary artery without angina pectoris; I44.7 Left bundle-branch block, unspecified; I45.5 Other specified heart block; K64.9 Unspecified hemorrhoids; Z91.19 Patient's noncompliance with other medical treatment and regimen; Z95.5 Presence of coronary angioplasty implant and graft; Z99.2 Dependence on renal dialysis; Z88.8 Allergy status to other drugs, medicaments and biological substances; Z89.431 Acquired absence of right foot
CPT/HCPCS: 31500; 36415; 71045; 80048; 80053; 80076; 80202; 82270; 82550; 82553; 82948; 83735; 83874; 84100; 84484; 85025; 85027; 85610; 85730; 86850; 86900; 86901; 90935; 92950; 93005; C9113; J0171; J1170; J1644; J1815; J2270; J2354; J2405; J3370; J3490; J7030; P9046